=== PATIENT | female | born 1945 | race Caucasian/White ===

== ENCOUNTER 2020-10-16 14:14 | Observation (INO) | payer MEDICARE, OTHER ==
[~2020-10-16] VITALS: Ht 144.8 cm; Wt 45.9 kg
[2020-10-16 16:27] VITALS: BP 127/78
[2020-10-16] MEDS ORDERED: IBUPROFEN 600 MG TABLET PO PRN (16:45)
[2020-10-16] MEDS ORDERED: MORPHINE SULFATE 2 MG/ML 1ML SYG IVP PRN (16:45)
[2020-10-16] MEDS: SODIUM CHLORIDE 0.9% 1000ML 1,000 ML IV SCH (16:45)
[2020-10-16 16:56] LABS: BASOPHILS % (AUTO) 0.8 % (0.0-5.0); EOSINOPHILS % (AUTO) 2.6 % (0.0-8.0); HEMATOCRIT 34.4 % (36-48); LYMPHOCYTES % (AUTO) 34.9 % (21.0-51.0); MEAN CORPUSCULAR HEMOGLOBIN 30.8 pg (27.0-33.0); MEAN CORPUSCULAR HGB CONC 33.1 g/dL (32.0-36.0); MONOCYTES % (AUTO) 12.8 % (3.0-13.0); NEUTROPHILS % (AUTO) 48.1 % (40.0-77.0); PLATELET COUNT (AUTO) 380 K/uL (130-400); RED CELL DISTRIBUTION WIDTH 12.5 % (11.0-15.5); WHITE BLOOD COUNT (AUTO) 3.9 K/uL (4.8-10.8)
[2020-10-16 17:09] LABS: CREATININE 0.8 mg/dL (0.5-1.5); POTASSIUM 4.2 mmol/L (3.5-5.1)
[2020-10-16 17:14] LABS: ALBUMIN 3.2 g/dL (3.5-5.0); BILIRUBIN,TOTAL 0.2 mg/dL (0.2-1.0); TOTAL PROTEIN, SERUM 7.4 g/dL (6.0-8.3)
[2020-10-16] MEDS ORDERED: LEVO50TA11 PO (18:29)
[2020-10-16] MEDS ORDERED: CEFD300C3 PO (18:29)
[2020-10-16 20:07] VITALS: BP 118/70
[2020-10-16 21:52] LABS: APPEARANCE,URINE Clear (CLEAR); BILIRUBIN,URINE Negative (NEGATIVE); COLOR,URINE Yellow (YELLOW); GLUCOSE, URINE (UA) Negative (NEGATIVE); KETONES,URINE Negative (NEGATIVE); LEUKOCYTE ESTERASE ,URINE Negative (NEGATIVE); NITRATE,URINE Negative (NEGATIVE); OCCULT BLOOD,URINE Negative (NEGATIVE); PROTEIN,URINE Negative (NEGATIVE); UROBILINOGEN,URINE 0.2 mg/dL (0.2-1.0)
[2020-10-16 23:39] VITALS: BP 117/68
[2020-10-17] VITALS (22 sets, daily range): BP systolic 110–143; BP diastolic 56–78
--- NOTE | 2020-10-17 03:55 | NUR ---
ROUNDS PATIENT RESTING IN BED WITH OU CLOSED. EASILY AROUSED. NO COMPLAINTS OF PAIN VOICED. RESP EVEN AND UNLABORED. NO SOB NOTED. ON ROOM AIR. UP WITH ASSIST X1. VOIDING WITHOUT DIFFICULTY OR PAIN. NS INFUSING AT 100ML/HR. NO SIGNS OF DISTRESS NOTED. CALL LIGHT WITHIN REACH. WILL CONTINUE TO BE OBSERVED. Addendum: 10/17/20 at 0358 by AUBREE BAKER RN RN Amended: Links added.
[2020-10-17] MEDS: SODIUM CHLORIDE 0.9% 1000ML 1,000 ML IV SCH (05:19)
[2020-10-17 05:33] LABS: HEMATOCRIT 32.1 % (36-48); MEAN CORPUSCULAR HGB CONC 33.6 g/dL (32.0-36.0); MEAN CORPUSCULAR VOLUME 92.2 fL (79-99); RED BLOOD CELL COUNT(AUTO) 3.48 MIL/uL (4.00-5.50); RED CELL DISTRIBUTION WIDTH 12.3 % (11.0-15.5)
[2020-10-17 05:50] LABS: CREATININE 0.9 mg/dL (0.5-1.5); POTASSIUM 4.3 mmol/L (3.5-5.1)
[2020-10-17] MEDS ORDERED: ENOXAPARIN SODIUM 30 MG/0.3 ML SQ SCH (09:00)
[2020-10-17] MEDS ORDERED: FAMOTIDINE 20MG TAB 20 MG TAB PO SCH (09:00)
[2020-10-17] MEDS ORDERED: MIDAZOLAM HCL 1 MG/ML 2ML VIAL ONE (09:08)
[2020-10-17] MEDS ORDERED: FENTANYL CITRATE PF 50 MCG/1 ML 2ML VIAL ONE (09:08)
[2020-10-17] MEDS ORDERED: PROPOFOL 10 MG/ML 20ML VIAL IV ONE (09:16)
[2020-10-17] MEDS ORDERED: EPHEDRINE SULFATE 50 MG/ML AMPULE ONE (09:21)
[2020-10-17] MEDS ORDERED: LACTATED RINGERS 1000ML 1,000 ML IV ONE (09:21)
[2020-10-17] MEDS ORDERED: IOHEXOL-350 50ML VIAL IV ONE (10:06)
[2020-10-17] MEDS ORDERED: CEFTRIAXONE SODIUM 1 GM ONE (10:53)
[2020-10-17] MEDS ORDERED: METOCLOPRAMIDE 10 MG/2 ML VIAL ONE (11:55)
--- NOTE | 2020-10-17 17:20 | NUR ---
pt and stated understanding of all d/c instructions on after care from ureter stent placement and lithotripsy; iv access removed and perscription given; i have instructed pt to call dr rodriguez office for f/u appointment since it was closed at noon today and we were unable to make a f/u for her. pt instructed to return to ed if fever, sob, bloody urination or any other problems occur
== END 2020-10-17 18:00 | disposition home or self-care (01) ==
LOC: EDSTATUS 15:10 → 3AH 15:12
PROVIDERS: ADMIT Family Medicine; ATTEND Family Medicine
DX: N13.2 Hydronephrosis with renal and ureteral calculous obstruction (principal); Z20.828 Contact with and (suspected) exposure to other viral communicable diseases; M81.0 Age-related osteoporosis without current pathological fracture; E03.9 Hypothyroidism, unspecified; Z79.899 Other long term (current) drug therapy; Z88.6 Allergy status to analgesic agent; Z91.040 Latex allergy status; Z88.5 Allergy status to narcotic agent; Z88.8 Allergy status to other drugs, medicaments and biological substances
CPT/HCPCS: 36415 ×2; 52356; 74018; 80048; 80053; 81003; 82360; 85025; 85027; 87088; 87426; 93005; 96360; 96361; A4216; A4221; A4222; A4223; A4354; A4358; A4663; A4930; A6207; C1758; C1769; C1894; C2617; G0378 ×24; J0696; J2250; J2704; J2765; J3010; J3490; J7030; J7120; Q9967

== ENCOUNTER → 2021-11-21 | Outpatient (CLI) | payer OTHER ==
[~2021-11-21] MED LIST: CEFD300C3 PO; LEVO50TA11 PO
== END | disposition home or self-care (01) ==
LOC: RAH 13:37
PROVIDERS: ATTEND Urology
DX: N20.0 Calculus of kidney (principal); Z90.49 Acquired absence of other specified parts of digestive tract
CPT/HCPCS: 74018